=== PATIENT | female | born 1980 | race Caucasian/White ===

== ENCOUNTER 2016-10-02 05:05 | Inpatient (IN) | payer BC ==
[2016-10-02] VITALS (25 sets, daily range): BP systolic 103–137; BP diastolic 52–84
[~2016-10-02] VITALS: Ht 170.2 cm; Wt 100.0 kg
[2016-10-02] MEDS: DOCUSATE SODIUM 100 MG (COLACE) CAP PO SCH (00:25)
[2016-10-02] MEDS ORDERED: OXYTOCIN INJ 20 UNIT in NS 1000ml 1,000 ML IV PRN (05:09)
[2016-10-02] MEDS ORDERED: MISOPROSTOL 25 MCG (CYTOTEC) TABLET PV SCH (05:10)
[2016-10-02] MEDS ORDERED: SODIUM CHLORIDE FLUSH 3 ML SYR IV PRN (05:10)
[2016-10-02] MEDS ORDERED: SODIUM CHLORIDE FLUSH 10 ML SYR IV PRN (05:10)
[2016-10-02] MEDS ORDERED: CALCIUM CARBONATE CHEWABLE 300 MG (TUMS) TABLET PO PRN (05:10)
[2016-10-02] MEDS ORDERED: OXYTOCIN INJ 20 UNIT in NS 1000ml 1,000 ML SCH (06:10)
[2016-10-02] MEDS ORDERED: OXYTOCIN 10 UNIT/ML (PITOCIN) 1 ML VIAL ONE (06:12)
[2016-10-02 06:19] LABS: MEAN CORPUSCULAR HEMOGLOBIN 30.2 PG (26.0-34.0); MEAN CORPUSCULAR HGB CONC 35.4 g/dL (31.0-37.0); WHITE BLOOD COUNT 14.42 10^3uL (4.0-11.0)
[2016-10-02] MEDS ORDERED: LANOLIN OINTMENT 28 GM TUBE TOP PRN (16:50)
[2016-10-02] MEDS: IBUPROFEN 600 MG (MOTRIN) TAB PO PRN (17:48)
--- NOTE | 2016-10-02 20:30 | NUR ---
Asked to have saline lock removed. Informed her it needed to remain for her tubal ligation tomorrow. Asked her about her plans and preference for anesthesia. States she would rather have general anesthesia because she had a "bad experience that messed my back up" with a previous epidural. Dr. Vazquez and Ike Worley CYLINDER HONER notified. Plan of care for night discussed.
[2016-10-02] MEDS: HYDROcodone/APAP 5 MG/325 MG (NORCO) TAB PO PRN (20:50)
--- NOTE | 2016-10-02 21:45 | NUR ---
Reviewed that she will be NPO after 0. Discussed plan of care for the morning and preparation for surgery - IV and meds. Acknowledges understanding. Father of baby spending the night at bedside.
[2016-10-03] VITALS (13 sets, daily range): BP systolic 93–124; BP diastolic 53–77
[2016-10-03] MEDS: IBUPROFEN 600 MG (MOTRIN) TAB PO PRN ×3 (00:20→20:56)
[2016-10-03] MEDS ORDERED: POT BICARB/SOD BICARB/CIT AC (ALKA-SELTZER GOLD) 1 TABLET.EFF PO SCH (06:00)
[2016-10-03] MEDS ORDERED: LACTATED RINGERS 1,000 ML IV SCH (06:15)
[2016-10-03] MEDS ORDERED: METOCLOPRAMIDE 10 MG/2 ML (REGLAN) VIAL IV SCH (06:25)
[2016-10-03] MEDS ORDERED: BUPIVACAINE/EPINEPHRINE 0.5%-1:200,000 (MARCAINE) 30 ML VIAL INJ ONE (06:48)
[2016-10-03] MEDS ORDERED: METOCLOPRAMIDE 10 MG/2 ML (REGLAN) VIAL ONE (06:48)
[2016-10-03] MEDS ORDERED: ceFAZolin 2,000 MG in SODIUM CHLORIDE 100 ML IV ONE (07:20)
[2016-10-03] MEDS ORDERED: ceFAZolin 1000 MG (ANCEF) VIAL ONE (07:24)
[2016-10-03] MEDS ORDERED: SODIUM CHLORIDE 50 ML IV ONE (07:25)
[2016-10-03] MEDS ORDERED: SUCCINYLCHOLINE 20 MG/ML 10 ML VIAL ONE (07:53)
[2016-10-03] MEDS ORDERED: MIDAZOLAM 2 MG/2 ML (VERSED) VIAL ONE (07:53)
[2016-10-03] MEDS ORDERED: ALFENTANIL 500 MCG/ML (ALFENTA) 5 ML AMP IV ONE (07:53)
[2016-10-03] MEDS ORDERED: PROPOFOL 20 ML IV ONE (07:53)
[2016-10-03] MEDS ORDERED: ONDANSETRON 2 MG/ML (Z0FRAN) 2 ML VIAL ONE (08:12)
[2016-10-03] MEDS ORDERED: GLYCOPYRROLATE 0.2 MG/ML (ROBINUL) 1 ML VIAL ONE (08:34)
[2016-10-03] MEDS ORDERED: NEOSTIGMINE 1 MG/ML SYRINGE ONE (08:34)
[2016-10-03] MEDS ORDERED: ROCURONIUM 50 MG/5 ML (ZEMURON) VIAL IV ONE (08:41)
[2016-10-03] MEDS ORDERED: morphine INJ 2 MG/ML 1 ML SYRINGE IV PRN (09:10)
[2016-10-03] MEDS ORDERED: morphine INJ 4 MG/ML 1 ML SYRINGE IV PRN (09:25)
[2016-10-03] MEDS ORDERED: morphine INJ 4 MG/ML 1 ML SYRINGE ONE (09:26)
--- NOTE | 2016-10-03 09:48 | NUR ---
0900 pt returned to room post op. report received. care assumed. pt rates pain of 5 at incision site. Denies nausea. Is on 3 L of O2 per nasal canula. This RN requests an order for IV pain med for pt.t 0930 pt reports pain of 8 as 2 mg IV morphine is administered via slow push. O2 sats are 100%. O2 is dc'd; sats are 98% on RA. 0945 pt reports pain of 6; denies nausea. Will continue to monitor pain level.
--- NOTE | 2016-10-03 09:54 | NUR ---
0800 pt taken to OR via bed in good condition.
--- NOTE | 2016-10-03 10:30 | NUR ---
pt rates pain a 4. Denies nausea. Bowel sounds present. Sprite and kit crackers requested by pt.
[2016-10-03] MEDS: HYDROcodone/APAP 5 MG/325 MG (NORCO) TAB PO PRN ×3 (11:25→20:18)
[2016-10-03] MEDS: DOCUSATE SODIUM 100 MG (COLACE) CAP PO SCH (20:56)
--- NOTE | 2016-10-03 21:16 | NUR ---
Abdominal gauze dressing has 6 cm spot of red blood, appears to be old and new drainage. New dressing applied. Will watch for more drainage.
[2016-10-04] MEDS: HYDROcodone/APAP 5 MG/325 MG (NORCO) TAB PO PRN ×3 (01:27→11:57)
[2016-10-04] MEDS: IBUPROFEN 600 MG (MOTRIN) TAB PO PRN ×2 (02:31→08:54)
[2016-10-04] MEDS ORDERED: ESCITALOPRAM 10 MG (LEXAPRO) TABLET PO SCH (09:00)
[2016-10-04 09:05] VITALS: BP 112/65
--- NOTE | 2016-10-04 13:50 | NUR ---
Abd dsg changed.
--- NOTE | 2016-10-04 14:00 | NUR ---
Dismissal instructions provided, pt verbalizes understanding of all instructions. States she is comfortable with self care and infant care. Dismissed ambulatory to home, accompanied by FOB and OB staff.
== END 2016-10-04 14:00 | disposition home or self-care (01) | DRG 767 ==
LOC: OB 05:05
PROVIDERS: ADMIT Family Medicine; ATTEND Family Medicine
PROC: 3E033VJ Introduction of Other Hormone into Peripheral Vein, Percutaneous Approach (ICD-10-PCS; principal; 2016-10-02)
PROC: 10E0XZZ Delivery of Products of Conception, External Approach (ICD-10-PCS; 2016-10-02)
PROC: 0UB70ZZ Excision of Bilateral Fallopian Tubes, Open Approach (ICD-10-PCS; 2016-10-03)
DX: O48.0 Post-term pregnancy (principal); O99.344 Other mental disorders complicating childbirth; F32.9 Major depressive disorder, single episode, unspecified; F41.8 Other specified anxiety disorders; O99.334 Smoking (tobacco) complicating childbirth; F17.210 Nicotine dependence, cigarettes, uncomplicated; O69.2XX0 Labor and delivery complicated by other cord entanglement, with compression, not applicable or unspecified; Z3A.40 40 weeks gestation of pregnancy; Z37.0 Single live birth; Z30.2 Encounter for sterilization
CPT/HCPCS: 36415; 58605; 85014; 85018; 85027; 86850; 86900; 86901